=== PATIENT | male | born 1980 | race Caucasian/White ===

== ENCOUNTER 2018-05-28 08:52 | Emergency (ER) | payer MEDICAID, OTHER ==
[~2018-05-28] VITALS: Ht 172.7 cm; Wt 84.4 kg
[2018-05-28 09:04] VITALS: BP 122/88
[2018-05-28] MEDS ORDERED: METHOCARBAMOL 750 MG TABLET ONE (09:37)
[2018-05-28] MEDS ORDERED: KETOROLAC 30 MG/1 ML ONE (09:37)
[2018-05-28] MEDS ORDERED: METHOCARBAMOL 750 MG TABLET PO ONE (10:00)
[2018-05-28] MEDS ORDERED: KETOROLAC 30 MG/1 ML IM ONE (10:00)
== END 2018-05-28 10:48 | disposition home or self-care (01) ==
LOC: ED 09:33
DX: M54.2 Cervicalgia (principal)
CPT/HCPCS: 72050; 96372; 99284; J1885

== ENCOUNTER 2019-01-11 07:06 | Emergency (ER) | payer BC, OTHER ==
[~2019-01-11] VITALS: Ht 172.7 cm; Wt 88.2 kg
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
--- NOTE | 2019-01-11 07:36 | NUR ---
Pt taken to CT in stable condition.
--- NOTE | 2019-01-11 08:38 | NUR ---
Pt chart reviewed and placed for recheck. ERP Dr. Lozada at bedside.
--- NOTE | 2019-01-11 08:51 | NUR ---
Report given to RADHIKA Fabian.
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
[2019-01-11 09:45] VITALS: BP 140/75
== END 2019-01-11 09:48 | disposition home or self-care (01) ==
LOC: ED 09:29
DX: S16.1XXA Strain of muscle, fascia and tendon at neck level, initial encounter (principal); S39.012A Strain of muscle, fascia and tendon of lower back, initial encounter; S29.012A Strain of muscle and tendon of back wall of thorax, initial encounter; M54.16 Radiculopathy, lumbar region; V49.09XA Driver injured in collision with other motor vehicles in nontraffic accident, initial encounter; Y93.89 Activity, other specified; Y92.89 Other specified places as the place of occurrence of the external cause; Y99.8 Other external cause status
CPT/HCPCS: 72072; 72110; 72125; 99284